=== PATIENT | male | born 1980 | race Caucasian/White ===

== ENCOUNTER 2020-11-06 09:15 | Day surgery (SDC) | payer BC ==
[2020-11-04 15:16] VITALS: BP 140/86
[~2020-11-06] VITALS: Ht 182.9 cm; Wt 116.1 kg
[2020-11-06] VITALS (15 sets, daily range): BP systolic 129–145; BP diastolic 67–87
[2020-11-06] MEDS ORDERED: LACTATED RINGERS 1000ML 1,000 ML IV ONE (09:55)
[2020-11-06] MEDS ORDERED: CEFAZOLIN SODIUM 1 GM VIAL ONE ×2 (14:32→15:57)
[2020-11-06] MEDS ORDERED: [UNRECOGNIZED DRUG - REMARK] IO SCH (15:00)
[2020-11-06] MEDS ORDERED: CEFAZOLIN SODIUM 1 GM VIAL IVP SCH (15:00)
[2020-11-06] MEDS ORDERED: SODIUM CHLORIDE 5% 15 ML OPHTH SOLN OP SCH (15:00)
[2020-11-06] MEDS ORDERED: LIDOCAINE PF 2% 5ML ABBOJECT ONE (15:29)
[2020-11-06] MEDS ORDERED: PROPOFOL 10 MG/ML 20ML VIAL IV ONE (15:30)
[2020-11-06] MEDS ORDERED: MIDAZOLAM HCL 1 MG/ML 2ML VIAL ONE (15:30)
[2020-11-06] MEDS ORDERED: FENTANYL CITRATE PF 50 MCG/1 ML 2ML VIAL ONE (15:30)
[2020-11-06] MEDS ORDERED: ROCURONIUM 10MG/1ML SYR 10 MG/ML ML ONE (15:33)
[2020-11-06] MEDS ORDERED: SUCCINYLCHOLINE 200MG/10ML SYR ONE (15:33)
[2020-11-06] MEDS ORDERED: ONDANSETRON HCL 4 MG/2 ML VIAL ONE (15:51)
[2020-11-06] MEDS ORDERED: BUPIVACAINE/PF 0.25% 10ML VIAL IJ ONE (15:52)
[2020-11-06] MEDS ORDERED: BUPIVACAINE/EPI/PF 0.5% 30ML VIAL IJ ONE (15:54)
[2020-11-06] MEDS ORDERED: GENTAMICIN SULFATE 80 MG/2 ML VIAL ONE (15:57)
[2020-11-06] MEDS ORDERED: EPHEDRINE SULFATE 50 MG/ML AMPULE ONE (16:05)
[2020-11-06] MEDS ORDERED: ERYTHROMYCIN BASE 0.5% OPHTH OINT 1 GM TUBE OP SCH (16:12)
== END 2020-11-06 18:20 | disposition home or self-care (01) ==
LOC: DAH 09:15
PROVIDERS: ATTEND Plastic Surgery
DX: H00.11 Chalazion right upper eyelid (principal); H02.89 Other specified disorders of eyelid; Z20.828 Contact with and (suspected) exposure to other viral communicable diseases; D49.9 Neoplasm of unspecified behavior of unspecified site; E66.9 Obesity, unspecified; K21.9 Gastro-esophageal reflux disease without esophagitis; L90.5 Scar conditions and fibrosis of skin; Z88.1 Allergy status to other antibiotic agents; Z68.34 Body mass index [BMI] 34.0-34.9, adult; Z79.899 Other long term (current) drug therapy
CPT/HCPCS: 13151; 67808; 87070; 87076; 87205; A4215; A4221; A4222; A4223; A4600 ×2; A4606; A4663; C9803; J0330; J0690 ×2; J1580; J2001; J2250; J2405; J2704; J3010; J3490 ×2; J7120 ×2; U0003